=== PATIENT | female | born 1980 | race Caucasian/White ===

== ENCOUNTER 2024-10-01 17:14 | Emergency (ER) | payer OTHER ==
[~2024-10-01] VITALS: Ht 157.5 cm; Wt 83.9 kg
[2024-10-01] VITALS (9 sets, daily range): BP systolic 155–199; BP diastolic 93–104
[~2024-10-01 17:14] MED LIST: AMOXICILLIN/CL875 MG OR; AMOXICILLIN/PO500 MG PO; AMOXICILLIN500 MG PO; AUGMENTIN875TAB PO; BACTRIM DS1 TAB OR; CIPRO500 MG OR; FLAGYL500 MG OR; FLEXERIL OR; FLUARIX QUADRIV1 INJ IM; IMITREX25 MG OR; LORTAB 5 OR; NAPROSYN500 MG OR; TOPAMAX25 MG OR; ULTRAM50 M1 PO; [UNRECOGNIZED DRUG - REMARK]
[2024-10-01] MEDS ORDERED: SODIUM CHLORIDE 0.9% 1,000 ML IV STA (17:31)
[2024-10-01] MEDS ORDERED: MORPHINE SULFATE 4 MG/ML VIAL IV ONE (17:40)
[2024-10-01] MEDS ORDERED: KETOROLAC TROMETHAMINE 30 MG/ML SDV IV ONE (17:40)
[2024-10-01] MEDS ORDERED: ENALAPRILAT 1.25 MG/ML 1ML IV ONE (18:00)
[2024-10-01 18:11] LABS: BASO% 0.3 % (0-3); HEMATOCRIT 39.6 % (37.0-47.0); HEMOGLOBIN 12.8 g/dl (12.0-16.0); IMMATURE GRANULOCYTES 0.1 % (0.0-5.0); LYMPH% 17.7 % (15-41); MEAN CELL VOLUME 89.8 fL CALC (80.0-100.0); MEAN CORPUSCULAR HGB CONC 32.3 g/dL CAL (32.0-36.0); MONO% 8.4 % (2-13); NEUT# 9.85 thou/uL (2.00-7.15); NEUT% 73.5 % (42-76); RED BLOOD COUNT 4.41 mill/uL (4.20-5.60); RED CELL DISTRI WIDTH 12.4 % (11.5-15.5)
[2024-10-01 18:13] LABS: URINE BILIRUBIN - DIPSTICK Negative (NEGATIVE); URINE BLOOD DIPSTICK Moderate (NEGATIVE); URINE GLUCOSE - DIPSTICK Negative (NEGATIVE); URINE KETONE Negative (NEGATIVE); URINE LEUK ESTERASE Negative (NEGATIVE); URINE NITRITE - DIPSTICK Negative (Negative); URINE PROTEIN - DIPSTICK Negative (NEG-TRACE); URINE SPECIFIC GRAVITY 1.025; URINE UROBILINOGEN - DIPSTICK 0.2 E.U./dL (0.2)
[2024-10-01 18:19] LABS: URINE COLOR Yellow
[2024-10-01 18:24] LABS: ALBUMIN 4.4 g/dL (3.2-5.0); BILIRUBIN, TOTAL 0.5 mg/dL (0.02-1.3); CREATININE 0.8 mg/dL (0.5-1.0); POTASSIUM 3.3 mmol/l (3.5-5.1); TOTAL PROTEIN 7.7 g/dL (6.3-8.2)
[2024-10-01 18:33] LABS: URINE SQUAMOUS EPITHELIAL CELL FEW EPI/hpf (0-FEW); URINE TRICHOMONAS RARE hpf; URINE WBC 0-2 WBC/hpf (0-5)
[2024-10-01] MEDS ORDERED: PIPERACILLIN Sodium-Tazobactam 3.375 GM in SODIUM CHLORIDE 0.9% 100 ML IV STA (19:18)
== END 2024-10-01 20:51 | disposition left against medical advice (07) | DRG 372 ==
LOC: ED 17:14
PROVIDERS: Emergency Medicine
DX: K65.1 Peritoneal abscess (principal); T81.43XA Infection following a procedure, organ and space surgical site, initial encounter; F17.210 Nicotine dependence, cigarettes, uncomplicated; Y83.6 Removal of other organ (partial) (total) as the cause of abnormal reaction of the patient, or of later complication, without mention of misadventure at the time of the procedure; Z53.29 Procedure and treatment not carried out because of patient's decision for other reasons
CPT/HCPCS: Q9967